=== PATIENT | female | born 2000 | race Caucasian/White ===

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

== ENCOUNTER → 2019-02-12 | Outpatient (CLI) | payer OTHER, BC ==
[2019-02-13 14:09] LABS: T. vaginalis (DNA Probe) Negative (NEGATIVE)
[2019-02-13 14:10] LABS: Candida species (DNA Probe) Positive (NEGATIVE); G. vaginalis (DNA Probe) Negative (NEGATIVE)
== END ==
LOC: LAB UCHC 17:00 → LAB SHORT 17:00
PROVIDERS: Registered Nurse Community Health
DX: Z11.3 Encounter for screening for infections with a predominantly sexual mode of transmission (principal); N89.8 Other specified noninflammatory disorders of vagina
CPT/HCPCS: 87070; 87205; 87480; 87510; 87660

== ENCOUNTER 2019-02-24 07:21 | Day surgery (SDC) | payer OTHER, BC | END 2019-02-24 23:11 | disposition home or self-care (01) | LOC: MOI US 07:21 → MOI MAM 07:30 → MOI US 07:30 | PROC: 0HBT3ZX Excision of Right Breast, Percutaneous Approach, Diagnostic (ICD-10-PCS; principal; 2019-02-24) | DX: D24.1 Benign neoplasm of right breast (principal) | CPT/HCPCS: 19083; 88305; A4648 ==

== ENCOUNTER → 2019-03-11 | Outpatient (CLI) | payer OTHER, BC ==
[2019-03-11 21:07] LABS: Hematocrit 40.6 % (33.0-51.0); Hemoglobin 13.4 g/dL (11.5-16.0)
== END ==
LOC: LAB 20:11 → LAB SHORT 20:11
PROVIDERS: Registered Nurse Community Health
DX: R55 Syncope and collapse (principal)
CPT/HCPCS: 83036; 84443; 85014; 85018

== ENCOUNTER → 2019-04-22 | Outpatient (CLI) | payer OTHER, BC | LOC: LAB 11:45 → LAB SHORT 11:45 | DX: N89.8 Other specified noninflammatory disorders of vagina (principal) | CPT/HCPCS: 87070; 87205 ==

== ENCOUNTER → 2021-06-21 | Outpatient (CLI) | payer OTHER, BC | LOC: LAB SHORT 13:19 → LAB 13:19 | DX: J02.9 Acute pharyngitis, unspecified (principal); Z88.1 Allergy status to other antibiotic agents | CPT/HCPCS: 87081 ==

== ENCOUNTER → 2022-11-02 | Outpatient (CLI) | payer OTHER, BC ==
[2022-11-02 12:59] LABS: BASOPHILS ABSOLUTE AUTO 0.04 K/mm3 (0.00-0.23); BASOPHILS PERCENT AUTO 0 % (0-2); EOSINOPHILS ABSOLUTE AUTO 0.01 K/mm3 (0.00-0.68); EOSINOPHILS PERCENT AUTO 0 % (0-6); Hematocrit 43.7 % (33.0-51.0); Hemoglobin 14.7 g/dL (11.5-16.0); IMMATURE GRAN ABSOLUTE AUTO 0.05 K/mm3 (0.00-0.10); IMMATURE GRAN PERCENT AUTO 0 % (0-1); LYMPHOCYTES ABSOLUTE AUTO 1.42 K/mm3 (0.84-5.20); LYMPHOCYTES PERCENT AUTO 12 % (21-46); MONOCYTES ABSOLUTE AUTO 1.12 K/mm3 (0.16-1.47); MONOCYTES PERCENT AUTO 9 % (4-13); Mean Corpuscular HGB Conc 33.6 g/dL (31.5-36.5); Mean Corpuscular Volume 86 fL (80-100); Mean Platelet Volume 9.7 fL (9.1-12.4); NEUTROPHILS ABSOLUTE AUTO 9.72 K/mm3 (1.96-9.15); NEUTROPHILS PERCENT AUTO 79 % (41-73); Platelet Count 296 K/mm3 (150-400); RDW Coefficient Variation 11.9 % (11.7-14.2); RDW Standard Deviation 37.6 fL (35.1-46.3); Red Blood Cell Count 5.07 M/mm3 (3.80-5.20); White Blood Cell Count 12.36 K/mm3 (4.00-11.30)
[2022-11-02 13:14] LABS: Albumin, Blood 4.4 g/dL (3.4-5.0); Bilirubin, Total 0.5 mg/dL (0.1-1.0); Bun/Creatinine Ratio 10.6 (12.0-20.0); Calcium, Blood 9.5 mg/dL (8.5-10.1); Creatinine, Blood 0.76 mg/dL (0.40-1.00); Globulin, Blood 4.2 g/dL (2.2-4.0); Magnesium, Blood 2.3 mg/dL (1.6-2.4); Potassium, Blood 3.6 mmol/L (3.5-5.5); Total Protein, Blood 8.6 g/dL (6.4-8.2)
== END | disposition home or self-care (01) ==
LOC: LAB SHORT 12:48
PROVIDERS: Nurse Practitioner Family
DX: E86.0 Dehydration (principal); R10.0 Acute abdomen
CPT/HCPCS: 80053; 83735; 85025

== ENCOUNTER → 2024-08-26 | Outpatient (CLI) | payer OTHER, BC ==
[2024-08-28 13:59] LABS: CALPROTECTIN,FECAL 57 ug/g (<=49)
== END ==
LOC: LAB SHORT 07:45 → LAB 07:45
PROVIDERS: Naturopath
DX: R19.7 Diarrhea, unspecified (principal); E55.9 Vitamin D deficiency, unspecified
CPT/HCPCS: 83993